=== PATIENT | female | born 1960 | race Caucasian/White ===

== ENCOUNTER 2020-07-13 12:40 | Outpatient (CLI) | payer OTHER, SELFPAY ==
--- NOTE | ~2020-07-13 | DEXA_ITS ---
Bone Density Report Name: Smitha Sanchse Age: 59 Sex: Female Ethnicity: White Date of : 1960 Indication: postmenopausal; parental hip fracture; height loss; prior fracture; Referring Provider: CAMDEN EVGA Study: Bone densitometry was performed. Exam Date: July 13, 2020 Accession number: [id number] Bone Density: Region BMD T-score Z-score Classification Femoral Neck (Left) 0.801 -0.4 0.8 Normal Total Hip (Left) 1.011 0.6 1.5 Normal Total Hip Bilateral Avg 1.011 0.6 1.5 Normal Femoral Neck (Right) 0.792 -0.5 0.7 Normal Total Hip (Right) 1.010 0.6 1.5 Normal World Health Organization criteria for BMD impression classify patients as: Normal (T-score at or above -1.0), Osteopenia (T-score between -1.0 and -2.5), or Osteoporosis (T-score at or below -2.5). 10-year Fracture Risk: FRAX not reported because: All T-scores for Spine Total, Hip Total, Femoral Neck at or above -1.0 Previous Exams: Region Exam Age BMD T-score BMD Change BMD Change Date g/cm2 vs Baseline vs Previous Total Hip(Left) 07/13/2020 59 1.011 0.6 0.040(4.1%)* 0.011(1.1%) 02/23/2018 57 1.000 0.5 0.029(3.0%)* 0.029(3.0%)* 02/20/2015 54 0.971 0.2 Total Hip(Right) 07/13/2020 59 1.010 0.6 0.004(0.4%) 0.007(0.7%) 02/23/2018 57 1.004 0.5 -0.003(-0.3%) -0.003(-0.3%) 02/20/2015 54 1.006 0.5 *Denotes significance at 95% confidence level, LSC for Total Hip = 0.027 g/cm2 Clinical Information Provided by Patient: Has had a low trauma fracture Parent has had a hip fracture Has used the following medications: HRT (i.e. estrogen/hormone therapy), Vitamin D, Calcium Patient maximum height was 68.5 Menopause Age: 50 No regular weight bearing exercise Drinks caffeinated beverages Onset of menses at age 13 Number of children 3 Impression: The patient has normal bone mass. The patient has risk factors, including: parental hip fracture, previous fracture. No significant bone loss was observed. Discussion: BONE DENSITY IS ABOVE THE MINIMUM DESIRABLE LEVEL AT ALL SKELETAL SITES TESTED. This patient?s bone mineral density is above the minimum desirable level (T-score -1.0 or better) at all sites measured. The patient should follow a healthful lifestyle (good nutrition with adequate calcium and vitamin D, and appropriate weight-bearing exercise). Follow-Up: Consider repeating this study in 5 years or sooner if there is some new clinical indication. Reported by: LARA on 07/23/2020 1
== END 2020-07-13 12:41 | disposition home or self-care (01) ==
LOC: ANHIMG 12:44
PROVIDERS: PCP Emergency Medicine; Visit Provider Obstetrics & Gynecology Gynecology
DX: Z78.0 Asymptomatic menopausal state (principal)
CPT/HCPCS: 77080

== ENCOUNTER 2022-01-23 02:17 | Day surgery (SDC) | payer BC, SELFPAY ==
[2022-01-17 09:36] VITALS: BMI 30.4
[2022-01-23 10:27] VITALS: BP 127/93; PULSE 74; RESP 16; TEMP 36.6; O2SAT 99
[2022-01-23] MEDS: LACTATED RINGERS 1,000 ML 150 ML IV CONT (10:42)
--- NOTE | 2022-01-23 11:00 | P.HP_ITS ---
History of Present Illness History of Present Illness Consent: Risks, benefits, and alternatives have been discussed and questions answered. Patient agrees to proceed with procedure. Chief complaint: GERD Narrative: Smitha Sanches is a 61 year old female Referred for EGD. Patient complains of chronic heartburn. She denies dysphagia or bleeding. She often will have acid regurgitation to her throat. Patient previously prescribed Prilosec which alleviates her symptoms however she does not take this over fear of decreased bone metabolism. Patient recently had increased throat pain. Was found to have oral thrush. She now is referred for EGD. Primary care service is advised her to start Protonix which has not yet been accomplished. She does try Pepcid with no relief of symptoms. She typically will take a PPI intermittently. Patient is reported to have a negative Cologuard test within the last 2 years. Review of Systems Review of Systems: Review of systems noncontributory. [facility] Social History Social History Smoking status: Never smoker Alcohol intake: current Alcohol use details: socially Substance use: never Substance use type: does not use Living arrangements: with family Spiritual care concerns: No Meds Home Medications and Allergies Home Medications Medication Instructions Recorded Confirmed Type gabapentin 800 mg tablet See Rx Instructions .Route .COMPLEX 01/17/22 01/23/22 History rosuvastatin 10 mg tablet 10 mg PO DAILY 01/17/22 01/23/22 History famotidine 20 mg tablet 20 mg PO DAILY 01/23/22 01/23/22 History Allergies Allergy/AdvReac Type Severity Reaction Status Date / Time ciprofloxacin [From Cipro] AdvReac Nausea Verified 01/23/22 10:23 vancomycin AdvReac Nausea Verified 01/23/22 10:23 Vital Signs Vital Signs - 24 hr 01/23/22 10:27 Temperature 97.9 F Pulse Rate 74 Respiratory Rate 16 Blood Pressure 127/93 H Pulse Oximetry 99 Oxygen Delivery Room Air Exam Narrative: Physical exam reveals patient to be alert. Vital signs stable. HEENT exam is unremarkable. Patient is anicteric. Lungs are clear to auscultation and percussion. Heart is without murmur or extra sounds. Abdomen bowel sounds present soft nontender with no organomegaly. Assessment and Plan Assessment and plan (1) Heartburn: Code(s): R12 - Heartburn Status: Acute Assessment and Plan: Patient has a history of chronic heartburn suggesting underlying acid reflux disease. Patient reports a good response to Prilosec. But she does not take this regularly because of concern over calcium malabsorption. EGD is requested because of chronic heartburn presumably she has underlying acid reflux. She states at 1 point was told she had a hiatal hernia. Plan to assess with EGD further recommendations will be given after endoscopy. Likely would benefit from Protonix or similar PPI and anti-reflux measures with calcium supplementation if necessary. (2) Thrush: Code(s): B37.0 - Candidal stomatitis Status: Acute Assessment and Plan: Patient gives a history of oral thrush being diagnosed recently. Unlikely to involve the esophagus based on her symptoms. This will be assessed at time of EGD.
--- NOTE | 2022-01-23 11:25 | P.PNAN_ITS ---
Anes - Initial Pre Proc Eval Procedure: Operation Date: 01/23/22 11:15 Proposed Procedures p Esophagogastroduodenoscopy EGD - Jaime Kimball MD Date/Time: 01/23/22 11:25 Surgeon: Jaime Kimball MD Pre Op Diagnosis: GERD Patient Data Age: 61 Gender: F Height: 1.73 m Weight: 93.3 kg Last Vital Signs Temp 97.9 F 01/23/22 10:27 Pulse 74 01/23/22 10:27 Resp 16 01/23/22 10:27 BP 127/93 H 01/23/22 10:27 Pulse Ox 99 01/23/22 10:27 O2 Del Method Room Air 01/23/22 10:27 Allergies Allergy/AdvReac Type Severity Reaction Status Date / Time ciprofloxacin [From Cipro] AdvReac Nausea Verified 01/23/22 10:23 vancomycin AdvReac Nausea Verified 01/23/22 10:23 Home Medications Medication Instructions Recorded Confirmed Type gabapentin 800 mg tablet See Rx Instructions .Route .COMPLEX 01/17/22 01/23/22 History rosuvastatin 10 mg tablet 10 mg PO DAILY 01/17/22 01/23/22 History famotidine 20 mg tablet 20 mg PO DAILY 01/23/22 01/23/22 History Patient hx anesthesia problems: none Family hx anesthesia problems: none Results Review: All pre-operative results and documents have been reviewed as part of the pre- operative evaluation. [facility] Social History Social History Smoking status: Never smoker Alcohol intake: current Alcohol use details: socially Substance use: never Substance use type: does not use Living arrangements: with family Spiritual care concerns: No Anes - Eval Final PreProcedure Day of Procedure 01/23/22 11:25 Patient weight: obese Heart: regular rate and rhythm Lungs: clear to auscultation Airway: Mallampati scale class II Neurological: alert and oriented Last oral intake: >/= 8 hours ASA classification: II Emergent: no Anesthetic plan: proceed Anesthesia type and monitoring: general GIVS and standard monitoring Results Review: All pre-operative results and documents have been reviewed as part of the pre- operative evaluation. Informed Consent: The patient's anesthetic plan and its attendant risks and benefits were discussed with the patient/family/POA. Questions were solicited and answers provided to the satisfaction of the patient/family/POA.
[2022-01-23] MEDS: BENZOCAINE (*SP) 60 ML SPRAY CAN (HURRICAINE) 1 SPRAY MUCOUS MEM (11:39)
[2022-01-23 11:50] VITALS: BP 100/58; PULSE 67; RESP 21; O2SAT 94
[2022-01-23 12:00] VITALS: BP 99/59; PULSE 59; RESP 16; O2SAT 99
[2022-01-23 12:10] VITALS: BP 99/61; PULSE 58; RESP 12; O2SAT 99
== END 2022-01-23 12:20 | disposition home or self-care (01) ==
PROVIDERS: PCP Emergency Medicine; Visit Provider Internal Medicine Gastroenterology
PROC: 0DJ08ZZ Inspection of Upper Intestinal Tract, Via Natural or Artificial Opening Endoscopic (ICD-10-PCS; CPT 43235; principal; 2022-01-23 11:15)
DX: R12 Heartburn (principal); B37.0 Candidal stomatitis; K44.9 Diaphragmatic hernia without obstruction or gangrene
CPT/HCPCS: 43235; 87081; J2704; J7120

== ENCOUNTER 2022-04-08 19:58 | Emergency (ER) | payer BC, SELFPAY ==
[2022-04-08 20:07] VITALS: BP 115/60; PULSE 78; RESP 16; TEMP 36.3; O2SAT 97
--- NOTE | 2022-04-08 20:10 | ED.GENADULT ---
HPI - General Adult General Chief complaint: Upper Respiratory Infection Stated complaint: fever, sore throat Source: patient Mode of arrival: ambulatory Limitations: no limitations History of Present Illness HPI narrative: Patient presents for evaluation of sick symptoms. Symptom onset a few days ago. She reports mild fever with temperature of a 100.0? F, scratchy throat, and some vertigo when turning over in bed. She was here in company with her daughter who is being evaluated for similar symptoms. Her daughters strep test was positive. She then elected to sign in. Denies any nausea, vomiting, diarrhea, cough, shortness of breath. No additional complaints or concerns. Related Data Home Medications Medication Instructions Recorded Confirmed gabapentin 800 mg tablet See Rx Instructions .Route .COMPLEX 01/17/22 04/08/22 rosuvastatin 10 mg tablet 10 mg PO DAILY 01/17/22 04/08/22 pantoprazole 40 mg tablet,delayed 40 mg PO DAILY 04/08/22 04/08/22 release Allergies Allergy/AdvReac Type Severity Reaction Status Date / Time ciprofloxacin [From Cipro] AdvReac Nausea Verified 04/08/22 20:02 vancomycin AdvReac Nausea Verified 04/08/22 20:02 Review of Systems Review of Systems: CONSTITUTIONAL: Reports mild fever. Denies chills, or sweats. EYES: Denies visual changes, redness, or discharge. ENT: Reports scratchy throat. Denies sore throat per se. Denies rhinorrhea, congestion, or otalgia. CARDIOVASCULAR: Denies chest pain, palpitations, or edema. RESPIRATORY: Denies cough or dyspnea. GASTROINTESTINAL: Denies abdominal pain, nausea, vomiting, or diarrhea. GENITOURINARY: Denies dysuria or hematuria. SKIN: Denies rash or itching. MUSCULOSKELETAL: Denies back pain, joint pain, or myalgia. NEUROLOGIC: Reports dizziness when turning her head. Denies dizziness otherwise. Denies headache, numbness, or weakness. PSYCHIATRIC: Denies anxiety or depression. [facility] Past Medical History Medical History (Updated 04/08/22 @ 20:15 by Sylvester Gardner, YOLANDA, RHONDA) No pertinent past medical history Surgical History Surgical History History of spinal fusion Family History Family History (Reviewed 04/08/22 @ 20:13 by Sylvester Gardner, [facility]) Mother Family history non-contributory Social History Social History Smoking status: Never smoker Alcohol intake: current Alcohol use details: socially Substance use: never Substance use type: does not use Spiritual care concerns: No Exam Narrative: GENERAL: Well-appearing, well-nourished, and in no acute distress. HEAD: Normocephalic, atraumatic. EYES: PERRLA and EOMI. ENT: Nares clear, no rhinorrhea or epistaxis. Mucous membranes moist. Mild posterior pharyngeal erythema without exudate. Uvula is midline. Bilateral TMs pearly hi nonbulging NECK: Supple. No adenopathy or masses. No carotid bruits or JVD CHEST: Clear to auscultation. No respiratory distress. No wheezes rales or rhonchi HEART: Regular rate and rhythm. No murmur heard. Normal peripheral pulses. ABDOMEN: Soft, nontender, nondistended, normal active bowel sounds. EXTREMITIES: Normal range of motion. No edema. SKIN: Warm, dry, no rash. NEURO: No focal deficits. Alert and oriented x3. PSYCH: Normal mood and affect. Course Course Emergency Course: This is a 61-year-old female who presented for evaluation of sick symptoms. Her daughter had tested positive for strep while here. Therefore she elected to sign in for further evaluation. Strep was negative. Based on her exposure we elected to treat her with amoxicillin. She should follow up outpatient for further evaluation treatment. Go to the ER for difficulty breathing or swallowing. Patient in agreement plan of care. Level of Care: Express Care Visit Vital Signs Vital signs: Vital Signs Temperature 36.3 C
== END 2022-04-08 20:16 | disposition home or self-care (01) ==
PROVIDERS: Emergency Provider Nurse Practitioner; PCP Emergency Medicine
DX: J02.9 Acute pharyngitis, unspecified (principal); Z20.818 Contact with and (suspected) exposure to other bacterial communicable diseases
CPT/HCPCS: 87081; 87880; 99213; G0463

== ENCOUNTER 2023-08-18 09:11 | Emergency (ER) | payer BC, SELFPAY ==
--- NOTE | ~2023-08-18 | CT_ITS ---
EXAMINATION: CT thoracic lumbar wo con DATE: 08/18/2023 10:09 INDICATION: Fall. Neck pain. TECHNIQUE: Computed tomography (CT) of the thoracic and lumbar spine was performed without intravenou s contrast. Automated exposure control and iterative reconstruction technique were employed. The dose -length product was 2280.93 mGy-cm. COMPARISON: None FINDINGS: CT THORACIC SPINE: There is a small sliding hiatal hernia. There is diffuse hepatic steatosis. There is 6 degrees dextrocurvature of thoracic spine. There are changes of posterior fusion procedure from T4 to the sacrum and iliac bones. Vertebral body heights are normal. Intervertebral disc heights are normal. There is multilevel mild facet joint hypertrophy and multilevel mild neural foraminal stenosi s. No central canal stenosis. CT LUMBAR SPINE: There is 11 degrees levoscoliosis of thoracolumbar spine. There are changes of poste rior fusion procedure involving the lumbar spine, sacrum, and iliac bones. No fracture. There is mild ly decreased disc height at T12-L1, moderately decreased disc height at L1-L2, and mildly decreased d isc height at L4-L5. There is multilevel mild facet joint hypertrophy. On the left, there is mild nabila ral foraminal stenosis at L4-L5. There is mild central canal stenosis at L1-L2. IMPRESSION: 1. No fracture. 2. Posterior fusion procedure from T4 to the sacrum and iliac bones. 3. Scoliosis. 4. Mild thoracic and lumbar spondylosis. Reviewed, dictated and finalized at location A.
--- NOTE | ~2023-08-18 | CT_ITS ---
EXAMINATION: CT cervical spine wo con DATE: 08/18/2023 10:09 INDICATION: Head injury. TECHNIQUE: Computed tomography (CT) of the cervical spine was performed without intravenous contrast. Automated exposure control and iterative reconstruction technique were employed. The dose-length pro duct was 560.36 mGy-cm. COMPARISON: None FINDINGS: There is 2 mm anterolisthesis of C7 on T1. Vertebral body heights are normal. There is mild ly decreased disc height at C3-C4 and severely decreased disc height from C4-C5 through C6-C7. The fo llowing disc levels are specifically discussed: C2-C3: There is mild left uncovertebral joint osteoarthritis. There is mild bilateral facet joint ost eoarthritis. There is no neural foraminal stenosis. There is no central canal stenosis. C3-C4: There is mild left uncovertebral joint osteoarthritis. There is severe bilateral facet joint o steoarthritis. There is no neural foraminal stenosis. There is mild central canal stenosis. C4-C5: There is severe bilateral uncovertebral joint osteoarthritis. There is mild bilateral facet linh int osteoarthritis. There is moderate right and mild left neural foraminal stenosis. There is mild ce ntral canal stenosis. C5-C6: There is severe bilateral uncovertebral joint osteoarthritis. There is severe right and mild l eft facet joint osteoarthritis. There is moderate bilateral neural foraminal stenosis. There is mild central canal stenosis. C6-C7: There is severe bilateral uncovertebral joint osteoarthritis. There is severe right and mild l eft facet joint osteoarthritis. There is mild bilateral neural foraminal stenosis. There is mild cent ral canal stenosis. C7-T1: There is no uncovertebral joint osteoarthritis. There is severe bilateral facet joint osteoart hritis. There is mild bilateral neural foraminal stenosis. There is no central canal stenosis. IMPRESSION: 1. No fracture. 2. Severe cervical spondylosis. Reviewed, dictated and finalized at location A.
--- NOTE | ~2023-08-18 | CT_ITS ---
EXAMINATION: CT brain wo con DATE: 08/18/2023 10:09 INDICATION: Head injury. Fall. TECHNIQUE: Computed tomography (CT) of the head was performed without intravenous contrast. The mA wa s adjusted according to patient size. Iterative reconstruction technique was employed. The dose-lengt h product was 605.33 mGy-cm. COMPARISON: None FINDINGS: There is no intracranial hemorrhage, acute infarction, or abnormal intracranial mass lesion . The ventricles are normal in size. There is a posterior scalp hematoma. The orbits are normal. The paranasal sinuses are clear. The mastoid air cells are normal. IMPRESSION: 1. Normal brain. Reviewed, dictated and finalized at location A. IMPRESSION: 1. Normal brain.
[2023-08-18 09:14] VITALS: BP 126/71; PULSE 78; RESP 16; TEMP 36.8; O2SAT 100
--- NOTE | 2023-08-18 09:43 | ED.GENADULT ---
[facility] - General Adult General Chief complaint: Head Injury Stated complaint: fell and hit back of head Time Seen by Provider: 08/18/23 09:34 Source: patient Mode of arrival: ambulatory Limitations: no limitations History of Present Illness HPI narrative: This is a 62-year-old female who presents to the ED with chief complaint of fall and head injury this morning. Patient reports that she was trying to stop her dogs from chasing each other. States that will be dog ran into her leg and caused her to fall straight backwards. Reports history of spinal fusion from T3-S1 so it is hard for her to bend her back. Reports she fell straight back onto the back of her head. Reports swelling to the back of head. Denies LOC. denies numbness, weakness, confusion, any further sites of pain or injury Related Data Home Medications Medication Instructions Recorded Confirmed gabapentin 800 mg tablet See Rx Instructions .Route .COMPLEX 01/17/22 04/08/22 rosuvastatin 10 mg tablet 10 mg PO DAILY 01/17/22 04/08/22 pantoprazole 40 mg tablet,delayed 40 mg PO DAILY 04/08/22 04/08/22 release Allergies Allergy/AdvReac Type Severity Reaction Status Date / Time ciprofloxacin [From Cipro] AdvReac Nausea Verified 08/18/23 09:12 vancomycin AdvReac Nausea Verified 08/18/23 09:12 Review of Systems Review of Systems: All systems as dictated in [facility] Past Medical History Medical History (Updated 08/18/23 @ 10:40 by Kye Blanchard PA-C) No pertinent past medical history Surgical History Surgical History History of spinal fusion Family History Family History Mother Family history non-contributory Social History Social History Smoking status: Never smoker Alcohol intake: current Alcohol use details: socially Substance use: never Substance use type: does not use Living arrangements: with family Spiritual care concerns: No Exam Narrative: GENERAL: Well-appearing, well-nourished, and in no acute distress. HEAD: Normocephalic, atraumatic. Small soft tissue hematoma noted to the occiput. EYES: PERRLA and EOMI. ENT: Nares clear, no rhinorrhea or epistaxis. Mucous membranes moist. Oropharynx without tonsillar hypertrophy exudate or other lesions. NECK: Supple. No adenopathy or masses. CHEST: No respiratory distress. Clear to auscultation. No wheezes rales or rhonchi HEART: Regular rate and rhythm. No murmur heard. Normal peripheral pulses. ABDOMEN: Soft, nontender, nondistended, normal active bowel sounds. MSK: Normal range of motion. No edema. SKIN: Warm, dry, no rash. NEURO: Alert and oriented x4. No focal deficits. 5/5 strength and sensation in the upper and lower extremities. Cranial nerves 2-12 intact. Coordination intact PSYCH: Normal mood and affect. Course Vital Signs Vital signs: Vital Signs Temperature 98.3 F 08/18/23 09:14 Pulse Rate 78 08/18/23 09:14 Respiratory Rate 16 08/18/23 09:14 Blood Pressure 126/71 08/18/23 09:14 Pulse Oximetry 100 08/18/23 09:14 Oxygen Delivery Room Air 08/18/23 09:14 Temperature 98.3 F 08/18/23 09:14 Pulse Rate 53 L 08/18/23 10:50 Respiratory Rate 20 08/18/23 10:50 Blood Pressure 111/60 08/18/23 10:50 Pulse Oximetry 97 08/18/23 10:50 Oxygen Delivery Room Air 08/18/23 09:14 Medical Decision Making MDM Narrative Medical decision making narrative: This is a 62-year-old female who presents to the ED with chief complaint of a fall. She fell backwards onto head. Vitals are normal. Exam is overall benign. She does have soft tissue scalp hematoma in the occiput. Neurologically fully intact. CT imaging of the brain, thoracic, lumbar, cervical spine are all negative for any acute findings. Symptoms consistent with soft tissue hemato
[2023-08-18 10:50] VITALS: BP 111/60; PULSE 53; RESP 20; O2SAT 97
== END 2023-08-18 10:52 | disposition home or self-care (01) ==
PROVIDERS: Emergency Provider Physician Assistant; PCP Nurse Practitioner Family
DX: S00.03XA Contusion of scalp, initial encounter (principal); Z98.1 Arthrodesis status; M41.9 Scoliosis, unspecified; M47.816 Spondylosis without myelopathy or radiculopathy, lumbar region; M47.814 Spondylosis without myelopathy or radiculopathy, thoracic region; M47.812 Spondylosis without myelopathy or radiculopathy, cervical region; W54.1XXA Struck by dog, initial encounter
CPT/HCPCS: 70450; 72125; 72128; 72131; 99284

== ENCOUNTER 2024-02-29 13:24 | Outpatient (CLI) | payer BC, SELFPAY ==
--- NOTE | ~2024-02-29 | DEXA_ITS ---
Bone Density Report Name: MAHIN GOSS Age: 63 Sex: Female Ethnicity: White Date of : 1960 Indication: postmenopausal; screening for osteoporosis; height loss; prior fracture; Referring Provider: ELIJAH, CRISTINA Study: Bone densitometry was performed. Exam Date: February 29, 2024 Accession number: [id number] Bone Density: Region BMD T-score Z-score Classification Femoral Neck (Left) 0.805 -0.4 1.0 Normal Total Hip (Left) 1.057 0.9 2.1 Normal Femoral Neck (Right) 0.779 -0.6 0.8 Normal Total Hip (Right) 1.023 0.7 1.8 Normal Total Hip Mean 1.040 0.8 2.0 Normal World Health Organization criteria for BMD impression classify patients as: Normal (T-score at or above -1.0), Osteopenia (T-score between -1.0 and -2.5), or Osteoporosis (T-score at or below -2.5). 10-year Fracture Risk: FRAX not reported because: All T-scores for Spine Total, Hip Total, Femoral Neck at or above -1.0 Prior hip or vertebral fracture Previous Exams: Region Exam Age BMD T-score BMD Change BMD Change Date g/cm2 vs Baseline vs Previous Total Hip(Left) 02/29/2024 63 1.057 0.9 0.086 (8.9%)* 0.047 (4.6%)* 07/13/2020 59 1.011 0.6 0.040 (4.1%)* 0.011 (1.1%) 02/23/2018 57 1.000 0.5 0.029 (3.0%)* 0.029 (3.0%)* 02/20/2015 54 0.971 0.2 Total Hip(Right) 02/29/2024 63 1.023 0.7 0.016 (1.6%) 0.012 (1.2%) 07/13/2020 59 1.010 0.6 0.004 (0.4%) 0.007 (0.7%) 02/23/2018 57 1.004 0.5 -0.003 (-0.3%) -0.003 (-0.3%) 02/20/2015 54 1.006 0.5 *Denotes significance at 95% confidence level, LSC for Total Hip = 0.027 g/cm2 Clinical Information Provided by Patient: Have had a previous hip or vertebral fracture Has had a low trauma fracture Has used the following medications: Vitamin D, Calcium Patient maximum height was 68.5 Menopause Age: 54 No regular weight bearing exercise Drinks caffeinated beverages Onset of menses at age 13 Number of children 3 Impression: The patient has normal bone mass. The patient has risk factors, including: previous fracture. No significant bone loss was observed. Discussion: INCREASED RISK OF FRACTURE DUE TO HISTORY OF FRACTURE. The patient's previous fracture puts the patient at high risk of a future fracture. In untreated patients, the risk of osteoporotic fracture increases approximately two-fold for each 1.0 SD decrease in T-score. Low bone density is not the only risk factor for fracture; also consider factors such as patient's age, frailty or poor health, risk of falling, risk of injury, previous osteoporotic fracture, family history of osteoporosis, cigarette smoking, low body weight, etc. Not everyone with a low trauma fracture has osteoporosis; osteomalacia and other metabolic bone disorders should also be considered. Patients who have osteoporosis should be evaluated for specific diseases and conditions (secondary causes) that may cause or contribute to bone loss and fracture risk. National Osteoporosis Foundation (NOF) recommends pharmacologic intervention for patients with a prior hip or vertebral fracture regardless of BMD T-score. The patient should follow a healthful lifestyle (good nutrition with adequate calcium and vitamin D, and appropriate weight-bearing exercise). Follow-Up: Consider a repeat BMD and Vertebral Fracture Assessment (VFA) exam in 2 years or sooner if medically necessary, to reassess this patient's status. Reported by: LARA on 02/29/2024 1:59:00 PM. Reviewed, dictated and finalized at location AAndre ANDREWS
== END 2024-02-29 13:25 | disposition home or self-care (01) ==
LOC: ANHIMG 13:26
PROVIDERS: PCP Nurse Practitioner Family; Visit Provider Nurse Practitioner Women's Health
DX: Z78.0 Asymptomatic menopausal state (principal); Z13.820 Encounter for screening for osteoporosis
CPT/HCPCS: 77080